=== PATIENT | male | born 1965 | race Caucasian/White ===

== ENCOUNTER → 2024-11-29 | Outpatient (CLI) | payer MEDICAID, SELFPAY ==
--- NOTE | 2024-11-29 11:00 | MRI_ITS ---
PROCEDURE: SPINE LUMBAR (ROUTINE) 11/29/2024 REASON FOR EXAM: LUMBAR PAIN WIHT RADICULOPATHY TECHNIQUE: SPINE LUMBAR (ROUTINE) COMPARISON: None FINDINGS: Anterior fusion L5-S1. No retroperitoneal mass. Mild canal narrowing at L1-2 from degenerative annular bulging. At L2-3 developmental canal narrowing broad-based disc bulging results in moderate spinal stenosis. At L3-4 moderate circumferential spinal canal narrowing due to broad-based osteophyte and disc bulge with moderate right L3 foraminal narrowing. At L4-5, mild central canal narrowing from facet arthrosis and broad-based annular bulging. Moderate to severe left L4 foraminal stenosis with potential nerve root impingement. At L5-S1, anterior fusion is seen without central spinal stenosis. Moderate left L5 foraminal narrowing. MRI/Spine Lumbar (Routine) IMPRESSION: 1. Anterior fusion at L5-S1. 2. Acquired upon developmental canal narrowing. 3. Moderate to severe left L4 and moderate left L5 foraminal stenosis. Correla te for left L4 or left L5 radiculopathy. 4. Moderate spinal stenosis at L3-4 Reading [facility]
== END | disposition home or self-care (01) ==
LOC: OPMRI 11:00
PROVIDERS: PCP Physician Assistant; Referring Provider Nurse Practitioner Family; Visit Provider Nurse Practitioner Family
DX: M41.56 Other secondary scoliosis, lumbar region (principal); M48.062 Spinal stenosis, lumbar region with neurogenic claudication
CPT/HCPCS: 72148